=== PATIENT | female | born 1985 | race African-American/Black ===

== ENCOUNTER 2021-07-20 01:00 | Emergency (ER) | payer MEDICAID ==
[~2021-07-20] VITALS: Ht 165.1 cm; Wt 77.0 kg
[2021-07-20] MEDS ORDERED: CEFAZOLIN 1000MG PREMIX 50 ML IV ONE (01:30)
[2021-07-20] MEDS ORDERED: TETANUS, DIPHTHERIA, PERTUSSIS VAC/PF 0.5ML (>10YR OLD) IM ONE (01:30)
[2021-07-20] MEDS ORDERED: LIDOCAINE HCL/EPINEPHRINE 1%-EPI 1:100,000 20 ML VIAL INFIL ONE (01:30)
[2021-07-20] MEDS ORDERED: MORPHINE SULFATE 4 MG/ML CPJ (NOT FOR IM USE) IV ONE (01:45)
[2021-07-20] MEDS ORDERED: IOHEXOL-300 100 ML BOTTLE ONE (02:47)
[2021-07-20] MEDS ORDERED: IBUP-2029 MT (03:04)
[2021-07-20] MEDS ORDERED: CEPH500C2 MT (03:04)
[2021-07-20 04:30] VITALS: BP 152/91
== END 2021-07-20 04:45 | disposition home or self-care (01) ==
LOC: ER 01:22
DX: S31.119A Laceration without foreign body of abdominal wall, unspecified quadrant without penetration into peritoneal cavity, initial encounter (principal); W25.XXXA Contact with sharp glass, initial encounter; Y93.89 Activity, other specified; Y08.89XA Assault by other specified means, initial encounter; Y92.018 Other place in single-family (private) house as the place of occurrence of the external cause; R06.02 Shortness of breath
CPT/HCPCS: 12002; 71045; 71260; 74177; 90471; 90715; 96365; 96375; 99285; J0690; J2270; J3490; Q9967